=== PATIENT | male | born 1965 | race Caucasian/White ===

== ENCOUNTER 2019-09-27 19:31 | Emergency (ER) | payer OTHER ==
--- NOTE | 2019-09-27 20:06 | ERPHSYRPT ---
- History of Present Illness Time Seen by Provider: 09/27/19 20:01 Source: patient Exam Limitations: no limitations Physician History: pt is 54 yr old male with fall from 10-15 feet onto head and dazed a moment now with neck and right shoulder pain, right knee and left hand pain and abrasions - tet UTD last year; no abd or chest pain but hit right chest ; accidently stepped through open ruffin, no prodrome , no dizziness ; no blood thinners or blood dyscrasias. abd and chest nontender . full ROM all other joints and neurovasc all intact at this time; tender neck and right shoulder and right knee ; Occurred: just prior to arrival Severity: moderate Head Injury Location: parietal Method of Injury: fell Loss of Consciousness: dazed Associated Symptoms: denies symptoms, other (neck pain right shoulder pain) Allergies/Adverse Reactions: acetaminophen [From Vicodin] Allergy (Verified 09/27/19 20:03) Nausea hydrocodone [From Vicodin] Allergy (Verified 09/27/19 20:03) Nausea Home Medications: Allopurinol [Zyloprim] 300 mg PO DAILY 09/27/19 [History] Atorvastatin Calcium 80 mg PO DAILY 09/27/19 [History] Fenofibrate 160 mg PO DAILY 09/27/19 [History] Glimepiride 4 mg PO BID 09/27/19 [History] Loratadine 10 mg PO DAILY 09/27/19 [History] Metformin HCl 1,000 mg PO BID 09/27/19 [History] Metoprolol Tartrate 100 mg PO DAILY 09/27/19 [History] PARoxetine HCl [Paxil] 20 mg PO DAILY 09/27/19 [History] Tamsulosin HCl 0.4 mg [Flomax 0.4 MG] 0.4 mg PO DAILY 09/27/19 [History] - Review of Systems Constitutional: No Fever, No Chills Eyes: No Symptoms Ears, Nose, & Throat: No Symptoms Respiratory: No Cough, No Dyspnea Cardiac: No Chest Pain, No Edema, No Syncope Abdominal/Gastrointestinal: No Abdominal Pain, No Nausea, No Vomiting, No Diarrhea Genitourinary Symptoms: No Dysuria Musculoskeletal: Neck Pain, Fall, Injury, Joint Pain, No Back Pain Skin: Other (abrasions left hand ), No Rash Neurological: No Dizziness, No Focal Weakness, No Sensory Changes Psychological: No Symptoms Endocrine: No Symptoms Hematologic/Lymphatic: No Symptoms Immunological/Allergic: No Symptoms All Other Systems: Reviewed and Negative - Past Medical History Pertinent Past Medical History: Yes - Nursing Vital Signs Nursing Vital Signs: Initial Vital Signs Temperature 98.3 F 09/27/19 19:43 Pulse Rate 69 09/27/19 19:43 Respiratory Rate 15 09/27/19 19:43 Blood Pressure 161/95 09/27/19 19:43 O2 Sat by Pulse Oximetry 96 09/27/19 19:43 Pain Scale Pain Intensity 2 - [place] Coma Score Best Eye Response ([place]): (4) open spontaneously Best Verbal Response ([place]): (5) oriented Best Motor Response ([place]): (6) obeys commands Ester Total: 15 - Physical Exam General Appearance: no apparent distress, alert Eye Exam: bilateral eye: PERRL, EOMI ENT Exam: airway nml Neck Exam: trachea midline, muscle spasm, paraspinous muscle tender, pain on movement of neck, tender lateral Cardiovascular/Respiratory Exam: chest non-tender, normal breath sounds, regular rate/rhythm Gastrointestinal/Abdominal Exam: soft, non tender, no distention Rectal Exam: deferred Back Exam: normal inspection, No vertebral tenderness Extremity Exam: non-tender, normal range of motion, normal inspection Mental Status Exam: alert, oriented x 3, cooperative Motor/Sensory Exam: no motor deficit, no sensory deficit, CN II-XII intact Skin Exam: normal color, warm, dry, No rash - Course Nursing assessment & vital signs reviewed: Yes EKG Interpreted by Me: Sinus Rhythm, Right Bundle Branch Block, Non-specific ST Changes - Radiology Exams Right Shoulder X-ray Interpretation: Reviewed by me, Other (post op changes) Left Hand X-ray Interpretation: Reviewed by me, Other (cortical irreg at disat phal of thumb - old trauma reported - now nontender there) Chest X-ray Interpretation: Reviewed by me, No Pneumonia, No Pneumothorax, Other ( compression of mid thoracic vertebra) Right Knee X-ray Interpretation: Reviewed by me, Other (no obvious fracture) - CT Exams Lumbar Spine CT Interpretation: Tele-radiologist Report, DJD, Other (DDD) Cervical Spine CT Interpretation: Tele-radiologist Report, DJD, No Fracture, Other (DDD SP discectomy) Head CT Interpretation: Tele-radiologist Report, No/Intracranial Hemorrhag Ordered Tests: Active Orders 24 hr Category Date Time Status EKG-ER Only STAT Care 09/27/19 20:31 Active IV Insertion STAT Care 09/27/19 20:31 Active CERVICAL SPINE WO CONTRAST [CT] Stat Exams 09/27/19 19:56 Taken CHEST 2 VIEWS (PA AND LAT) Stat Exams 09/27/19 20:00 Taken HAND (MINIMUM 3 VIEWS) Stat Exams 09/27/19 19:58 Taken HEAD WITHOUT CONTRAST [CT] Stat Exams 09/27/19 19:57 Taken KNEE (3 VIEWS) Stat Exams 09/27/19 19:58 Taken LUMBAR SPINE W/O [CT] Stat Exams 09/27/19 20:30 Taken SHOULDER Stat Exams 09/27/19 19:59 Taken CBC W DIFF Stat Lab 09/27/19 20:22 Completed CMP Stat Lab 09/27/19 20:22 Completed Lactic Acid Stat Lab 09/27/19 20:15 Completed Lactic Acid Stat Lab 09/27/19 22:22 Completed TROPONIN Q3H Lab 09/27/19 20:39 Completed TROPONIN Q3H Lab 09/27/19 23:43 Received TROPONIN Q3H Lab 09/28/19 02:45 Ordered TROPONIN Q3H Lab 09/28/19 05:45 Ordered TROPONIN Q3H Lab 09/28/19 08:45 Ordered UA W/RFX UR CULTURE Stat Lab 09/27/19 20:41 Completed Medication Summary Discontinued Medications Generic Name Dose Route Start Last Admin Trade Name Freq PRN Reason Stop Dose Admin Sodium Chloride 1,000 mls @ 999 mls/hr 09/27/19 20:31 09/27/19 22:42 Sodium Chloride 0.9% 1000 Ml IV 09/27/19 21:31 Infused .Q1H1M STA Infusion Sodium Chloride Confirm 09/27/19 21:30 Sodium Chloride 0.9% 1000 Ml Administered 09/27/19 21:31 Dose 1,000 mls @ ud .ROUTE .K-MED ONE Lab/Rad Data: Laboratory Result Diagrams 09/27/19 20:22 09/27/19 20:22 Laboratory Results 09/27/19 09/27/19 09/27/19 Range/Units 22:22 20:41 20:39 WBC (4.0-10.5) K/mm3 RBC (4.1-5.6) M/mm3 Hgb (12.5-18.0) gm/dl Hct (42-50) % MCV (78-100) fl MCH (26-32) pg MCHC (32-36) g/dl RDW (11.5-14.0) % Plt Count (150-450) K/mm3 MPV (7.5-11.0) fl Gran % (36.0-66.0) % Eos # (Auto) (0-0.5) Absolute Lymphs (auto) (1.0-4.6) Absolute Monos (auto) (0.0-1.3) Lymphocytes % (24.0-44.0) % Monocytes % (0.0-12.0) % Eosinophils % (0.00-5.0) % Basophils % (0.0-0.4) % Absolute Granulocytes (1.4-6.9) Basophils # (0-0.4) Sodium (137-145) mmol/L Potassium (3.5-5.1) mmol/L Chloride (98-107) mmol/L Carbon Dioxide (22-30) mmol/L Anion Gap (5-15) MEQ/L BUN (9-20) mg/dL Creatinine (0.66-1.25) mg/dL Estimated GFR ML/MIN Glucose (74-106) mg/dL Lactic Acid 2.2 H (0.4-2.0) Calcium (8.4-10.2) mg/dL Total Bilirubin (0.2-1.3) mg/dL AST (17-59) U/L ALT (0-50) U/L Alkaline Phosphatase (38-126) U/L Troponin I < 0.012 (0.000-0.034) ng/mL Serum Total Protein (6.3-8.2) g/dL Albumin (3.5-5.0) g/dL Urine Color YELLOW (YELLOW) Urine Appearance CLEAR (CLEAR) Urine pH 5.0 (5-6) Ur Specific [place] 1.025 (1.005-1.025) Urine Protein NEGATIVE (Negative) Urine Ketones NEGATIVE (NEGATIVE) Urine Blood NEGATIVE (0-5) [place]/ul Urine Nitrite NEGATIVE (NEGATIVE) Urine Bilirubin NEGATIVE (NEGATIVE) Urine Urobilinogen NEGATIVE (0-1) mg/dL Ur Leukocyte Esterase NEGATIVE (NEGATIVE) Urine WBC (Auto) NONE (0-5) /HPF Urine RBC (Auto) NONE (0-2) /HPF U Epithel Cells (Auto) NONE (FEW) /HPF Urine Bacteria (Auto) NONE (NEGATIVE) /HPF Urine Mucus (Auto) SLIGHT (NEGATIVE) /HPF Urine Culture Reflexed NO (NO) Urine Glucose >=500 (NEGATIVE) mg/dL 09/27/19 09/27/19 09/27/19 Range/Units 20:22 20:22 20:15 WBC 5.4 (4.0-10.5) K/mm3 RBC 4.62 (4.1-5.6) M/mm3 Hgb 14.2 (12.5-18.0) gm/dl Hct 41.6 L (42-50) % MCV 90.0 (78-100) fl MCH 30.7 (26-32) pg MCHC 34.1 (32-36) g/dl RDW 14.1 H (11.5-14.0) % Plt Count 129 L (150-450) K/mm3 MPV 10.5 (7.5-11.0) fl Gran % 67.0 H (36.0-66.0) % Eos # (Auto) 0.09 (0-0.5) Absolute Lymphs (auto) 1.26 (1.0-4.6) Absolute Monos (auto) 0.41 (0.0-1.3) Lymphocytes % 23.3 L (24.0-44.0) % Monocytes % 7.6 (0.0-12.0) % Eosinophils % 1.7 (0.00-5.0) % Basophils % 0.4 (0.0-0.4) % Absolute Granulocytes 3.62 (1.4-6.9) Basophils # 0.02 (0-0.4) Sodium 137 (137-145) mmol/L Potassium 4.3 (3.5-5.1) mmol/L Chloride 104 (98-107) mmol/L Carbon Dioxide 25 (22-30) mmol/L Anion Gap 12.6 (5-15) MEQ/L BUN 18 (9-20) mg/dL Creatinine 0.95 (0.66-1.25) mg/dL Estimated GFR > 60.0 ML/MIN Glucose 286 H (74-106) mg/dL Lactic Acid 3.6 H (0.4-2.0) Calcium 9.5 (8.4-10.2) mg/dL Total Bilirubin 1.20 (0.2-1.3) mg/dL AST 47 (17-59) U/L ALT 33 (0-50) U/L Alkaline Phosphatase 55 (38-126) U/L Troponin I (0.000-0.034) ng/mL Serum Total Protein 7.6 (6.3-8.2) g/dL Albumin 4.5 (3.5-5.0) g/dL Urine Color (YELLOW) Urine Appearance (CLEAR) Urine pH (5-6) Ur Specific [place] (1.005-1.025) Urine Protein (Negative) Urine Ketones (NEGATIVE) Urine Blood (0-5) [place]/ul Urine Nitrite (NEGATIVE) Urine Bilirubin (NEGATIVE) Urine Urobilinogen (0-1) mg/dL Ur Leukocyte Esterase (NEGATIVE) Urine WBC (Auto) (0-5) /HPF Urine RBC (Auto) (0-2) /HPF U Epithel Cells (Auto) (FEW) /HPF Urine Bacteria (Auto) (NEGATIVE) /HPF Urine Mucus (Auto) (NEGATIVE) /HPF Urine Culture Reflexed (NO) Urine Glucose (NEGATIVE) mg/dL - Progress Progress: improved, re-examined Progress Note: 09/27/19 23:42 waiting on repeat lactate after hydration - lab draw was delayed. Counseled pt/family regarding: lab results, diagnosis, need for follow-up, rad results - Departure Departure Disposition: Home Clinical Impression: Concussion, thoracic spine compression, right knee and shoulder sprains Condition: Good Critical Care Time: No Referrals: RAS WOLF JR [Primary Care Provider] - Instructions: Degenerative Disc Disease, Concussion, Adult (DC), Knee Sprain ( DC), Rotator Cuff Injury (DC), Vertebral Compression Fracture (DC), Cervical Muscle Strain (DC) Additional Instructions: you have multiple strains and contussions and probably a concussion from your fall so followup with your is important ; meanwhile look for any signs or symptoms which might indicate a worsening of your concussion - this becomes less likely after the first day, but even persisting headache should be checked out again; the knee and should may require furhter imaging if pain continues since ligaments not seen in x-rays can be hurt; return meantime if any concerns;
[2019-09-27 20:16] LABS: Absolute Neutrophil Ct (ANC) 3.62 (1.4-6.9); BASOPHIL % 0.4 % (0.0-0.4); Basophil (Absolute #) 0.02 (0-0.4); Eosinophil % 1.7 % (0.00-5.0); Eosinophil (Absolute #) 0.09 (0-0.5); Hematocrit 41.6 % (42-50); Hemoglobin 14.2 gm/dl (12.5-18.0); Lymphocyte (Absolute #) 1.26 (1.0-4.6); Lymphocytes % 23.3 % (24.0-44.0); Mean Corpuscular Hemoglobin 30.7 pg (26-32); Mean Corpuscular Hgb Concent. 34.1 g/dl (32-36); Mean Platelet Volume 10.5 fl (7.5-11.0); Monocyte (Absolute #) 0.41 (0.0-1.3); Monocytes % 7.6 % (0.0-12.0); Platelet Count 129 K/mm3 (150-450); Red Blood Count 4.62 M/mm3 (4.1-5.6); Red Cell Distribution Width 14.1 % (11.5-14.0); White Blood Count 5.4 K/mm3 (4.0-10.5)
[2019-09-27] MEDS ORDERED: Sodium Chloride 0.9% 1000 ML 1,000 ML IV STA (20:31)
[2019-09-27 20:33] LABS: ALBUMIN 4.5 g/dL (3.5-5.0); ALKALINE PHOSPHATASE 55 U/L (38-126); ANION GAP 12.6 MEQ/L (5-15); BLOOD UREA NITROGEN 18 mg/dL (9-20); CHLORIDE 104 mmol/L (98-107); Calcium 9.5 mg/dL (8.4-10.2); Carbon Dioxide 25 mmol/L (22-30); Creatinine 1 0.95 mg/dL (0.66-1.25); Glucose 286 mg/dL (74-106); Potassium 4.3 mmol/L (3.5-5.1); SGOT/AST 47 U/L (17-59); SGPT/ALT 33 U/L (0-50); SODIUM 137 mmol/L (137-145); Total Protein 7.6 g/dL (6.3-8.2)
[2019-09-27 20:45] LABS: Appearance CLEAR (CLEAR); Bilirubin NEGATIVE (NEGATIVE); Blood NEGATIVE Ery/ul (0-5); Glucose >=500 mg/dL (NEGATIVE); Ketones NEGATIVE (NEGATIVE); Leukocyte Esterase NEGATIVE (NEGATIVE); Mucus SLIGHT /HPF (NEGATIVE); Nitrite NEGATIVE (NEGATIVE); Protein,Urine Dip NEGATIVE (Negative); Specific Gravity 1.025 (1.005-1.025); Urobilinogen NEGATIVE mg/dL (0-1)
[2019-09-27] MEDS ORDERED: Sodium Chloride 0.9% 1000 ML 1,000 ML ONE (21:30)
[2019-09-27 23:37] VITALS: O2SAT 96
[2019-09-28 00:13] VITALS: BP 152/88; PULSE 62
--- NOTE | 2019-09-28 08:41 | XRAY ---
Indication: Pain following fall down stairs. Multiple contiguous axial images obtained through the head without contrast. Comparison: None Age-appropriate global atrophy. No acute intracranial hemorrhage, abnormal extra-axial fluid collection, or mass effect. Fourth ventricle is midline without hydrocephalus. Juarez-white matter differentiation preserved. Bony calvarium intact. Visualized paranasal sinuses and mastoid air cells are clear. Impression: No acute intracranial abnormalities. Comment: Preliminary interpretation was made by [facility]. No critical discrepancy.
--- NOTE | 2019-09-28 08:45 | XRAY ---
Indication: Pain following fall down stairs. Multiple contiguous axial images obtained through the cervical spine. Two-dimensional sagittal and coronal reformatted images obtained. Comparison: None Axial images negative for acute fracture, suspicious bony lesions, or spinal canal stenosis. Mild/moderate C3-C7 degenerative endplate spurring. Also mild multilevel bilateral degenerative facet hypertrophy. There has been previous C5-C6 fusion surgery with intact anterior plate/screws. Sagittal and coronal reformatted images demonstrate normal cervical alignment. C3-C7 disc space narrowing. No acute compression fracture, subluxation, or jumped facet. Normal appearing craniocervical junction. Visualized noncontrasted soft tissues demonstrates minimal left carotid calcifications. CT head reported separately. Impression: 1. Negative for acute fracture/subluxation. 2. Incidental multilevel degenerative changes and C5-C6 fusion. Comment: Preliminary interpretation was made by [facility]. No critical discrepancy.
--- NOTE | 2019-09-28 08:49 | XRAY ---
Indication: Pain following fall down stairs. Multiple contiguous axial images obtained through the lumbar spine. Two-dimensional sagittal and coronal reformatted images obtained. Comparison: None Large L1 vertebral hemangioma and tiny T11-T12 Schmorl nodes. Axial images negative for acute fracture, suspicious bony lesions, or spinal canal stenosis. There is moderate L5-S1 annular disc osteophyte complex with degenerative vacuum disc phenomena. Mild/moderate bilateral L4-S1 degenerative facet hypertrophy. Visualized SI joints are bilaterally symmetric. Sagittal and coronal reformatted images demonstrate normal lumbar alignment. L5-S1 disc space narrowing. No acute compression fracture or subluxation. Visualized noncontrasted soft tissues demonstrates minimal aortoiliac calcifications, and partially visualized bilateral renal cysts, largest left upper pole measuring 2.5 cm. Impression: 1. Negative for acute fracture/subluxation. 2. Incidental L5-S1 degenerative disc disease, L4-S1 degenerative facet hypertrophy, L1 vertebral hemangioma, T11-T12 Schmorl nodes, and bilateral renal cysts. Comment: Preliminary interpretation was made by [facility]. No critical discrepancy.
--- NOTE | 2019-09-28 08:49 | XRAY ---
Indication: Pain following fall down stairs. Comparison: None PA/lateral chest demonstrates normal heart and lungs. Bony thorax intact with mild degenerative changes.
--- NOTE | 2019-09-28 08:51 | XRAY ---
Indication: Pain following fall down stairs. Comparison: None 3 views of the right shoulder demonstrates moderate glenohumeral and acromioclavicular degenerative arthropathy. Humeral head demonstrates 2 orthopedic tacks from previous surgery. No other bony, articular, or soft tissue abnormalities.
--- NOTE | 2019-09-28 08:53 | XRAY ---
Indication: Pain following fall down stairs. Comparison: None 3 views of the left hand demonstrates 4th finger ring and moderate/advanced degenerative changes base 1st metacarpal. No other bony, articular, or soft tissue abnormalities.
--- NOTE | 2019-09-28 08:53 | XRAY ---
Indication: Pain following fall down stairs. Comparison: None 3 views of the right knee demonstrates mild anterior soft tissue swelling and mild scattered vascular calcifications. No other bony, articular, or soft tissue abnormalities.
== END 2019-09-27 23:59 | disposition home or self-care (01) ==
LOC: ED 19:31
DX: S06.0X9A Concussion with loss of consciousness of unspecified duration, initial encounter (principal); S24.109A Unspecified injury at unspecified level of thoracic spinal cord, initial encounter; W17.89XA Other fall from one level to another, initial encounter; S83.91XA Sprain of unspecified site of right knee, initial encounter; S43.401A Unspecified sprain of right shoulder joint, initial encounter; M54.2 Cervicalgia; M25.511 Pain in right shoulder; M25.561 Pain in right knee; M79.641 Pain in right hand; S60.512A Abrasion of left hand, initial encounter; S80.211A Abrasion, right knee, initial encounter; Z79.899 Other long term (current) drug therapy
CPT/HCPCS: 36000; 36415; 70450; 71046; 72125; 72131; 73030; 73130; 73562; 80053; 81001; 83605; 84484; 85025; 93005; 96360; 99284